=== PATIENT | female | born 1940 | race African-American/Black ===

== ENCOUNTER → 2017-02-12 | Outpatient (CLI) | payer MEDICARE, MEDICAID ==
[~2017-02-12] MED LIST: AMOX125S8 PO; ATEN50TA PO; CHOL50006 PO; CYAN50003 PO; DOCU250C75 PO; GABA300S PO; LEVO250T2 PO; OXYC-102 PO
== END | disposition home or self-care (01) ==
LOC: MRI 09:42
PROVIDERS: ATTEND Neurological Surgery
DX: M51.26 Other intervertebral disc displacement, lumbar region (principal); M47.816 Spondylosis without myelopathy or radiculopathy, lumbar region; M48.06 Spinal stenosis, lumbar region; M48.02 Spinal stenosis, cervical region; G95.89 Other specified diseases of spinal cord; Z98.1 Arthrodesis status
CPT/HCPCS: 72141; 72148

== ENCOUNTER 2017-06-06 10:21 | Emergency (ER) | payer MEDICARE, MEDICAID ==
[~2017-06-06] VITALS: Ht 157.5 cm; Wt 76.0 kg
[~2017-06-06 10:21] MED LIST changes: +DOCU250C14 PO; -DOCU250C75 PO
[2017-06-06] MEDS ORDERED: HYDR12.529 PO (10:38)
[2017-06-06] MEDS ORDERED: SIMV40TA5 PO (10:38)
[2017-06-06] MEDS ORDERED: LOSA100T14 PO (10:38)
[2017-06-06] MEDS ORDERED: CHOL400T15 MT (10:38)
[2017-06-06] MEDS ORDERED: ONDANSETRON 4MG ODT PO ONE (11:15)
[2017-06-06] MEDS ORDERED: HYDROCODONE/ACETAMINOPHEN 5/325MG TABLET PO ONE (11:15)
[2017-06-06 11:49] VITALS: BP 141/92
== END 2017-06-06 13:46 | disposition home or self-care (01) ==
LOC: ER 12:23
DX: M25.561 Pain in right knee (principal); I10 Essential (primary) hypertension; M54.40 Lumbago with sciatica, unspecified side; E78.00 Pure hypercholesterolemia, unspecified; Z90.710 Acquired absence of both cervix and uterus; V43.52XA Car driver injured in collision with other type car in traffic accident, initial encounter; Y93.89 Activity, other specified; Y99.8 Other external cause status; Y92.89 Other specified places as the place of occurrence of the external cause; Z88.8 Allergy status to other drugs, medicaments and biological substances; Z88.6 Allergy status to analgesic agent
CPT/HCPCS: 73562; 99284; Q0162

== ENCOUNTER → 2017-11-13 | Outpatient (CLI) | payer MEDICARE, MEDICAID ==
[~2017-11-13] MED LIST changes: +CHOL400T15 MT; +HYDR12.529 PO; +LOSA100T14 PO; +SIMV40TA5 PO
== END | disposition home or self-care (01) ==
LOC: RAD 10:52
PROVIDERS: ATTEND Neurological Surgery
DX: M43.16 Spondylolisthesis, lumbar region (principal); M48.061 Spinal stenosis, lumbar region without neurogenic claudication; M47.896 Other spondylosis, lumbar region
CPT/HCPCS: 72114; 72148

== ENCOUNTER → 2018-04-30 | Outpatient (CLI) | payer MEDICARE, MEDICAID ==
[~2018-04-30] MED LIST changes: +AMLO5TAB88 MT; -ATEN50TA PO; -CHOL400T15 MT; -CHOL50006 PO; -CYAN50003 PO; -DOCU250C14 PO; -GABA300S PO; -HYDR12.529 PO; -LEVO250T2 PO; -OXYC-102 PO
== END | disposition home or self-care (01) ==
LOC: RAD 11:00
PROVIDERS: ATTEND Specialist
DX: M79.89 Other specified soft tissue disorders (principal); I10 Essential (primary) hypertension; E11.9 Type 2 diabetes mellitus without complications; J45.909 Unspecified asthma, uncomplicated
CPT/HCPCS: 73610; 73630

== ENCOUNTER → 2018-07-09 | Outpatient (CLI) | payer MEDICARE, MEDICAID | END | disposition home or self-care (01) | LOC: MRI 09:36 | PROVIDERS: ATTEND Neurological Surgery | DX: M48.02 Spinal stenosis, cervical region (principal); M47.896 Other spondylosis, lumbar region; M48.061 Spinal stenosis, lumbar region without neurogenic claudication | CPT/HCPCS: 72141; 72148 ==

== ENCOUNTER 2019-04-30 16:31 | Emergency (ER) | payer MEDICARE, MEDICAID ==
[~2019-04-30] VITALS: Ht 157.5 cm; Wt 70.0 kg
[~2019-04-30 16:31] MED LIST changes: +AMOX125S12 PO; -AMOX125S8 PO; -LOSA100T14 PO; +LOSA100T32 PO
[2019-04-30] MEDS ORDERED: METRONIDAZOLE 500MG TABLET PO ONE (23:00)
[2019-04-30] MEDS ORDERED: LEVOFLOXACIN 750MG PREMIX 150 ML IV ONE (23:00)
[2019-04-30] MEDS ORDERED: MORPHINE SULFATE 4 MG/ML CPJ (NOT FOR IM USE) IV ONE (23:00)
[2019-04-30 23:18] VITALS: BP 143/77
== END 2019-05-01 00:39 | disposition home or self-care (01) ==
LOC: ER 16:31
DX: K57.92 Diverticulitis of intestine, part unspecified, without perforation or abscess without bleeding (principal); I10 Essential (primary) hypertension; J45.909 Unspecified asthma, uncomplicated; Z90.710 Acquired absence of both cervix and uterus; Z88.6 Allergy status to analgesic agent; Z98.890 Other specified postprocedural states
CPT/HCPCS: 96374; 99283; J1956; J2270

== ENCOUNTER → 2022-04-01 | Outpatient (CLI) | payer MEDICARE, MEDICAID ==
[~2022-04-01] MED LIST changes: +OXYC-104 MT; +SIMV-46 PO; -SIMV40TA5 PO; +VITA250012 PO
== END | disposition home or self-care (01) ==
LOC: LAB 09:31
PROVIDERS: ATTEND Specialist
DX: R06.02 Shortness of breath (principal); Z20.822 Contact with and (suspected) exposure to COVID-19
CPT/HCPCS: 87426; C9803

== ENCOUNTER → 2022-04-02 | Day surgery (SDC) | payer MEDICARE, MEDICAID ==
[~2022-04-02] VITALS: Ht 157.5 cm; Wt 71.7 kg
[~2022-04-02] MED LIST changes: +ACETAMINOPHEN 325MG TABLET PO PRN; +ASPIRIN/SOD BICARB/CITRIC ACID 324MG TAB EFF ONE; +FENTANYL CITRATE/PF 50MCG/ML 2ML VIAL ONE; +HEPARIN 1000 UNITS/ML 10ML ONE; +IODIXANOL 320MG/ML 100 ML BOTTLE IV ONE; +LIDOCAINE HCL 1% 10 MG/ML 10ML VIAL ONE; +MIDAZOLAM HCL 2 MG/2 ML VIAL ONE; +MORPHINE SULFATE 2 MG/ML CPJ (NOT FOR IM USE) IV PRN; +NICARDIPINE 100MCG/ML 10ML VIAL (CATH LAB) IV ONE; +NITROGLYCERIN 50MCG/ML 10ML VIAL (CATH LAB) IV ONE; +ONDANSETRON HCL 4MG/2ML INJ IV PRN
== END | disposition home or self-care (01) ==
LOC: CCL 08:44
PROVIDERS: ATTEND Specialist
DX: I25.10 Atherosclerotic heart disease of native coronary artery without angina pectoris (principal); Z79.899 Other long term (current) drug therapy; Z98.890 Other specified postprocedural states; Z82.49 Family history of ischemic heart disease and other diseases of the circulatory system; Z88.8 Allergy status to other drugs, medicaments and biological substances
CPT/HCPCS: 93458; C1769; C1893; J1644; J2250; J3010; J3490; Q9967

== ENCOUNTER 2022-04-23 08:55 | Inpatient (IN) | payer MEDICARE, MEDICAID ==
[~2022-04-23] VITALS: Ht 165.1 cm; Wt 71.7 kg
[~2022-04-23 08:55] MED LIST changes: -ACETAMINOPHEN 325MG TABLET PO PRN; -ASPIRIN/SOD BICARB/CITRIC ACID 324MG TAB EFF ONE; -FENTANYL CITRATE/PF 50MCG/ML 2ML VIAL ONE; -HEPARIN 1000 UNITS/ML 10ML ONE; -IODIXANOL 320MG/ML 100 ML BOTTLE IV ONE; -LIDOCAINE HCL 1% 10 MG/ML 10ML VIAL ONE; -MIDAZOLAM HCL 2 MG/2 ML VIAL ONE; -MORPHINE SULFATE 2 MG/ML CPJ (NOT FOR IM USE) IV PRN; -NICARDIPINE 100MCG/ML 10ML VIAL (CATH LAB) IV ONE; -NITROGLYCERIN 50MCG/ML 10ML VIAL (CATH LAB) IV ONE; -ONDANSETRON HCL 4MG/2ML INJ IV PRN
[2022-04-23] MEDS ORDERED: SODIUM CHLORIDE 0.9% 1,000 ML IV ONE (11:00)
[2022-04-23 11:23] LABS: BASOPHILS % 0.5 % (0.0-2.0); EOSINOPHILS % 0.2 % (0.0-5.0); HEMATOCRIT. 44.9 % (36.0-48.0); LYMPHOCYTES % 11.2 % (20.0-50.0); MEAN CORPUSCULAR HEMOGLOBIN 31.7 pg (28.0-32.0); MEAN CORPUSCULAR VOLUME 95.1 fL (81.0-99.0); MEAN PLATELET VOLUME 9.4 fl (7.4-10.4); MONOCYTES % 12.9 % (2.0-8.0); NEUTROPHILS % 75.2 % (40.0-76.0); PLATELET 168 x1000/uL (130-400); RED BLOOD CELL COUNT 4.73 mill/uL (4.2-5.4); RED CELL DISTRIBUTION WIDTH 13.9 % (11.6-14.6)
[2022-04-23 11:35] LABS: CHLORIDE 102 mEq/L (98-107)
[2022-04-23] MEDS ORDERED: SODIUM CHLORIDE 0.9% 1000ML BAG (SEPSIS BOLUS) IV NR (12:00)
[2022-04-23] MEDS ORDERED: PIPERACILLIN/TAZ 3.375G PREMIX 50 ML IV NR (12:00)
[2022-04-23] MEDS ORDERED: HYDROCODONE/ACETAMINOPHEN 5/325MG TABLET PO ONE (12:30)
[2022-04-23] MEDS: POTASSIUM CHLORIDE 20MEQ TABLET SR PO NR ×2 (12:46→13:54)
[2022-04-23] MEDS ORDERED: KCL 10MEQ/50ML PREMIX 50 ML IV ONE (13:45)
[2022-04-23] MEDS: AMLODIPINE 5MG TABLET PO SCH (19:15)
[2022-04-23] MEDS: OXYCODONE HCL/ACETAMINOPHEN 5/325MG TABLET PO PRN (19:25)
[2022-04-23 19:33] LABS: CLARITY URINE CLEAR (CLEAR); COLOR URINE YELLOW (YELLOW); KETONES URINE TRACE (NEGATIVE); LEUKOCYTE ESTERASE URINE NEGATIVE (NEGATIVE); NITRITE URINE NEGATIVE (NEGATIVE); OCCULT BLOOD URINE NEGATIVE (NEGATIVE); PH URINE 5.5 (4.5-8.0); PROTEIN URINE NEGATIVE (NEGATIVE); SPECIFIC GRAVITY URINE 1.015 (1.005-1.030)
[2022-04-23 22:10] VITALS: BP 117/54
[2022-04-23 23:00] VITALS: BP 117/54
[2022-04-23] MEDS: ATORVASTATIN CALCIUM 40MG TABLET PO SCH (23:37)
[2022-04-24] VITALS: BP 123/61
[2022-04-24 04:00] VITALS: BP 106/51
[2022-04-24 06:42] LABS: BASOPHILS % 0.1 % (0.0-2.0); EOSINOPHILS % 0.4 % (0.0-5.0); HEMATOCRIT. 38.7 % (36.0-48.0); HEMOGLOBIN. 13.2 g/dL (12.0-16.0); LYMPHOCYTES % 10.3 % (20.0-50.0); MEAN CORPUSCULAR HEMOGLOBIN 32.2 pg (28.0-32.0); MEAN CORPUSCULAR VOLUME 94.4 fL (81.0-99.0); MEAN PLATELET VOLUME 10.1 fl (7.4-10.4); MONOCYTES % 11.2 % (2.0-8.0); PLATELET 141 x1000/uL (130-400); RED CELL DISTRIBUTION WIDTH 14.7 % (11.6-14.6)
[2022-04-24 06:43] LABS: CHLORIDE 108 mEq/L (98-107)
[2022-04-24 08:21] VITALS: BP 98/44
[2022-04-24] MEDS ORDERED: POTASSIUM CHLORIDE 20MEQ/PACKET PO SCH (08:45)
[2022-04-24 09:46] LABS: CREATINE KINASE 750 IU/L (26-192)
[2022-04-24] MEDS: AMLODIPINE 5MG TABLET PO SCH (10:26)
[2022-04-24] MEDS: DEXT 5%/0.45% NACL 1000ML 1,000 ML IV SCH ×2 (10:30→21:26)
[2022-04-24 11:53] VITALS: BP 110/40
[2022-04-24] MEDS: OXYCODONE HCL/ACETAMINOPHEN 5/325MG TABLET PO PRN ×3 (12:48→14:41)
[2022-04-24 16:00] VITALS: BP 112/60
[2022-04-24 20:00] VITALS: BP 97/50
[2022-04-24] MEDS: ATORVASTATIN CALCIUM 40MG TABLET PO SCH (21:26)
[2022-04-25] VITALS: BP 113/49
[2022-04-25 04:00] VITALS: BP 112/53
[2022-04-25] MEDS: OXYCODONE HCL/ACETAMINOPHEN 5/325MG TABLET PO PRN (05:28)
[2022-04-25 06:52] LABS: CHLORIDE 110 mEq/L (98-107)
[2022-04-25 08:00] VITALS: BP 109/53
[2022-04-25] MEDS: AMLODIPINE 5MG TABLET PO SCH (09:00)
[2022-04-25] MEDS ORDERED: POTASSIUM CHLORIDE 20MEQ TABLET SR PO NR (09:45)
[2022-04-25 12:00] VITALS: BP 109/53
[2022-04-25 16:00] VITALS: BP 104/62
[2022-04-25 16:05] VITALS: BP 104/62
== END 2022-04-25 16:33 | disposition home or self-care (01) | DRG 641 ==
LOC: ER 08:55 → 6WST 13:39 → EDBEDREQTM 13:55 → EDBEDREQ 13:55 → ENRESERV 15:10
PROVIDERS: ADMIT Internal Medicine; ATTEND Internal Medicine
DX: E86.0 Dehydration (principal); N17.9 Acute kidney failure, unspecified; R63.4 Abnormal weight loss; E80.6 Other disorders of bilirubin metabolism; E87.6 Hypokalemia; F32.A Depression, unspecified; I10 Essential (primary) hypertension; E78.5 Hyperlipidemia, unspecified; J45.909 Unspecified asthma, uncomplicated; F41.9 Anxiety disorder, unspecified; M19.90 Unspecified osteoarthritis, unspecified site; G89.4 Chronic pain syndrome; Z20.822 Contact with and (suspected) exposure to COVID-19; Z79.899 Other long term (current) drug therapy; Z88.8 Allergy status to other drugs, medicaments and biological substances; Z90.710 Acquired absence of both cervix and uterus; Z82.49 Family history of ischemic heart disease and other diseases of the circulatory system
CPT/HCPCS: 36415; 71045; 76770; 80048; 80053; 81003; 82550; 83605; 84145; 84484; 85025; 87426; 93005; 99291; J2543; J3480; J7030

== ENCOUNTER 2022-12-23 00:45 | Inpatient (IN) | payer MEDICARE, MEDICAID ==
[~2022-12-23] VITALS: Ht 160 cm; Wt 64.0 kg
[~2022-12-23 00:45] MED LIST changes: -AMOX125S12 PO
[2022-12-23] MEDS ORDERED: MORPHINE SULFATE 4 MG/ML CPJ (NOT FOR IM USE) IV STA (03:05)
[2022-12-23] MEDS ORDERED: ONDANSETRON HCL 4MG/2ML INJ IV STA (03:05)
[2022-12-23] MEDS ORDERED: SODIUM CHLORIDE 0.9% 1,000 ML IV ONE ×2 (03:15→06:30)
[2022-12-23 03:32] LABS: BASOPHILS % 0.2 % (0.0-2.0); EOSINOPHILS % 0.1 % (0.0-5.0); HEMATOCRIT. 42.4 % (36.0-48.0); HEMOGLOBIN. 14.5 g/dL (12.0-16.0); LYMPHOCYTES % 9.4 % (20.0-50.0); MEAN CORPUSCULAR HEMOGLOBIN 33.3 pg (28.0-32.0); MEAN CORPUSCULAR VOLUME 97.8 fL (81.0-99.0); MEAN PLATELET VOLUME 9.7 fl (7.4-10.4); MONOCYTES % 8.9 % (2.0-8.0); NEUTROPHILS % 81.4 % (40.0-76.0); PLATELET 159 x1000/uL (130-400); RED BLOOD CELL COUNT 4.34 mill/uL (4.2-5.4)
[2022-12-23 03:41] LABS: CHLORIDE 105 mEq/L (98-107)
[2022-12-23 03:42] LABS: CLARITY URINE CLEAR (CLEAR); COLOR URINE DARK YELLOW (YELLOW); KETONES URINE TRACE (NEGATIVE); LEUKOCYTE ESTERASE URINE TRACE (NEGATIVE); NITRITE URINE NEGATIVE (NEGATIVE); OCCULT BLOOD URINE TRACE (NEGATIVE); PH URINE 5.5 (4.5-8.0); PROTEIN URINE NEGATIVE (NEGATIVE); SPECIFIC GRAVITY URINE 1.015 (1.005-1.030)
[2022-12-23] MEDS ORDERED: CEFTRIAXONE 1GM PREMIX 50 ML IV ONE (06:30)
[2022-12-23] MEDS ORDERED: METRONIDAZOLE 500 MG PREMIX 100 ML IV ONE (06:30)
[2022-12-23] MEDS: DEXT 5%/0.45% NACL 1000ML 1,000 ML IV SCH ×2 (13:15→23:32)
[2022-12-23] MEDS: MORPHINE SULFATE 2 MG/ML CPJ (NOT FOR IM USE) IV PRN ×2 (14:39→23:33)
[2022-12-23] MEDS: METRONIDAZOLE 500 MG PREMIX 100 ML IV SCH ×2 (14:40→21:04)
[2022-12-23 17:40] VITALS: BP 150/70
[2022-12-23 20:00] VITALS: BP 119/65
[2022-12-23] MEDS ORDERED: NALOXONE HCL 0.4MG/ML VIAL IV PRN (20:15)
[2022-12-23] MEDS: ATORVASTATIN CALCIUM 40MG TABLET PO SCH (21:04)
[2022-12-24] VITALS: BP 108/55
[2022-12-24 04:00] VITALS: BP 151/70
[2022-12-24] MEDS: MORPHINE SULFATE 2 MG/ML CPJ (NOT FOR IM USE) IV PRN ×3 (05:06→20:58)
[2022-12-24] MEDS: METRONIDAZOLE 500 MG PREMIX 100 ML IV SCH ×3 (06:26→22:22)
[2022-12-24 08:00] VITALS: BP 128/73
[2022-12-24] MEDS: AMLODIPINE 5MG TABLET PO SCH (09:26)
[2022-12-24] MEDS: LOSARTAN POTASSIUM 100 MG TABLET PO SCH (09:26)
[2022-12-24] MEDS: DEXT 5%/0.45% NACL 1000ML 1,000 ML IV SCH ×2 (10:13→19:15)
[2022-12-24 11:43] VITALS: BP 150/67
[2022-12-24 12:53] LABS: BASOPHILS % 0.8 % (0.0-2.0); EOSINOPHILS % 1.2 % (0.0-5.0); HEMATOCRIT. 41.6 % (36.0-48.0); HEMOGLOBIN. 13.8 g/dL (12.0-16.0); LYMPHOCYTES % 26.7 % (20.0-50.0); MEAN CORPUSCULAR HEMOGLOBIN 32.7 pg (28.0-32.0); MEAN CORPUSCULAR VOLUME 98.1 fL (81.0-99.0); MEAN PLATELET VOLUME 9.6 fl (7.4-10.4); NEUTROPHILS % 57.3 % (40.0-76.0); PLATELET 148 x1000/uL (130-400); RED BLOOD CELL COUNT 4.24 mill/uL (4.2-5.4); RED CELL DISTRIBUTION WIDTH 15.1 % (11.6-14.6)
[2022-12-24 13:09] LABS: CHLORIDE 107 mEq/L (98-107)
[2022-12-24 14:09] LABS: HEPATITIS B SURFACE ANTIGEN NEGATIVE
[2022-12-24 16:00] VITALS: BP 149/69
[2022-12-24 20:00] VITALS: BP 140/74
[2022-12-24] MEDS: ATORVASTATIN CALCIUM 40MG TABLET PO SCH (20:57)
[2022-12-25] VITALS: BP 137/76
[2022-12-25] MEDS: MORPHINE SULFATE 2 MG/ML CPJ (NOT FOR IM USE) IV PRN ×2 (02:59→11:36)
[2022-12-25 04:00] VITALS: BP 130/58
[2022-12-25] MEDS ORDERED: POTASSIUM CHLORIDE 10MEQ TABLET SR PO NR (06:00)
[2022-12-25] MEDS: METRONIDAZOLE 500 MG PREMIX 100 ML IV SCH (06:10)
[2022-12-25] MEDS: DEXT 5%/0.45% NACL 1000ML 1,000 ML IV SCH (06:10)
[2022-12-25 07:29] LABS: HEMATOCRIT. 38.7 % (36.0-48.0); MEAN CORPUSCULAR HEMOGLOBIN 32.6 pg (28.0-32.0); MEAN CORPUSCULAR VOLUME 97.3 fL (81.0-99.0); MEAN PLATELET VOLUME 9.2 fl (7.4-10.4); PLATELET 156 x1000/uL (130-400); RED BLOOD CELL COUNT 3.97 mill/uL (4.2-5.4); RED CELL DISTRIBUTION WIDTH 15.1 % (11.6-14.6)
[2022-12-25 08:00] VITALS: BP 147/73
[2022-12-25 08:15] LABS: CHLORIDE 106 mEq/L (98-107)
[2022-12-25 09:41] LABS: PLATELET ESTIMATE NORMAL
[2022-12-25] MEDS: LOSARTAN POTASSIUM 100 MG TABLET PO SCH (10:05)
[2022-12-25] MEDS: AMLODIPINE 5MG TABLET PO SCH (10:05)
[2022-12-25 12:00] VITALS: BP 153/63
[2022-12-25 16:00] VITALS: BP 132/52
[2022-12-25 16:10] VITALS: BP 132/52
== END 2022-12-25 16:35 | disposition home or self-care (01) | DRG 392 ==
LOC: ER 00:45 → 6EST 06:35 → EDBEDREQTM 06:40 → EDBEDREQ 06:40 → ENRESERV 10:49
PROVIDERS: ADMIT Internal Medicine; ATTEND Internal Medicine
DX: K57.92 Diverticulitis of intestine, part unspecified, without perforation or abscess without bleeding (principal); I10 Essential (primary) hypertension; G89.4 Chronic pain syndrome; F32.A Depression, unspecified; F41.9 Anxiety disorder, unspecified; E78.00 Pure hypercholesterolemia, unspecified; E87.6 Hypokalemia; E78.5 Hyperlipidemia, unspecified; Z87.891 Personal history of nicotine dependence; Z90.710 Acquired absence of both cervix and uterus; Z79.899 Other long term (current) drug therapy; Z82.49 Family history of ischemic heart disease and other diseases of the circulatory system
CPT/HCPCS: 36415; 71045; 74176; 76700; 80048; 80053; 80076; 81003; 83605; 85025; 86705; 86709; 86803; 87340; 99285; C1893; J0696; J2270; J2405; J3490; J7030

== ENCOUNTER 2024-04-11 20:28 | Emergency (ER) | payer MEDICARE, MEDICAID ==
[~2024-04-11] VITALS: Ht 162.6 cm; Wt 78.0 kg
[~2024-04-11 20:28] MED LIST changes: -LOSA100T32 PO; +LOSA100T33 PO
[2024-04-11 20:36] VITALS: O2SAT 99
[2024-04-11 21:17] LABS: HEMATOCRIT. 41.1 % (36.0-48.0); HEMOGLOBIN. 13.8 g/dL (12.0-16.0); MEAN CORPUSCULAR HEMOGLOBIN 35.3 pg (28.0-32.0); MEAN CORPUSCULAR HGB CONC 33.7 g/dL (31.0-37.0); MEAN CORPUSCULAR VOLUME 104.8 fL (81.0-99.0); PLATELET 135 x1000/uL (130-400); RED BLOOD CELL COUNT 3.92 mill/uL (4.2-5.4); RED CELL DISTRIBUTION WIDTH 16.5 % (11.6-14.6); WHITE BLOOD COUNT 4.3 x1000/uL (4.5-11.0)
[2024-04-11 21:18] LABS: DIFFERENTIAL COMMENT 1
[2024-04-11 21:23] LABS: CHLORIDE 113 mEq/L (98-107); POTASSIUM 3.7 mEq/L (3.5-5.1); SODIUM 146 mEq/L (136-145)
[2024-04-11 21:24] LABS: CALCIUM 8.9 mg/dL (8.7-10.4); CARBON DIOXIDE 27 mEq/L (21-32)
[2024-04-11 21:29] LABS: CREATININE 0.8 mg/dL (0.6-1.0); GLUCOSE 89 mg/dL (70-105); UREA NITROGEN BLOOD 13 mg/dL (9-23)
[2024-04-11 21:31] LABS: ALANINE AMINOTRANSFERASE 64 IU/L (10-49); ALBUMIN 3.6 g/dL (3.2-4.8); ASPARTATE AMINOTRANSFERASE 81 IU/L (<34); BILIRUBIN DIRECT 0.7 mg/dL (<=3.0); BILIRUBIN TOTAL 1.2 mg/dL (0.1-1.0); PROTEIN TOTAL 7.2 g/dL (6.0-8.3)
[2024-04-11 21:51] LABS: ANISOCYTOSIS 1+; PLATELET ESTIMATE NORMAL
[2024-04-12] MEDS ORDERED: TRAMADOL 50MG TABLET PO ONE (08:00)
[2024-04-12 08:14] LABS: CLARITY URINE CLEAR (CLEAR); COLOR URINE YELLOW (YELLOW); GLUCOSE URINE NEGATIVE (NEGATIVE); KETONES URINE NEGATIVE (NEGATIVE); LEUKOCYTE ESTERASE URINE TRACE (NEGATIVE); NITRITE URINE NEGATIVE (NEGATIVE); OCCULT BLOOD URINE NEGATIVE (NEGATIVE); PROTEIN URINE NEGATIVE (NEGATIVE); SPECIFIC GRAVITY URINE 1.015 (1.005-1.030)
[2024-04-12 08:40] LABS: BACTERIA URINE 1+; RBC URINE 0-2 /hpf (0-2); SQUAMOUS EPITHELIAL CELL URINE 2+ /lpf (RARE/1+); YEAST URINE NONE SEEN
[2024-04-12 10:28] LABS: BASOPHILS % 1.1 % (0.0-2.0); DIFFERENTIAL COMMENT 0; EOSINOPHILS % 2.3 % (0.0-5.0); HEMATOCRIT. 45.9 % (36.0-48.0); HEMOGLOBIN. 15.3 g/dL (12.0-16.0); LYMPHOCYTES % 42.9 % (20.0-50.0); MEAN CORPUSCULAR HGB CONC 33.3 g/dL (31.0-37.0); MEAN CORPUSCULAR VOLUME 105.2 fL (81.0-99.0); MEAN PLATELET VOLUME 9.2 fl (7.4-10.4); MONOCYTES % 11.5 % (2.0-8.0); NEUTROPHILS % 42.2 % (40.0-76.0); PLATELET 142 x1000/uL (130-400); RED BLOOD CELL COUNT 4.36 mill/uL (4.2-5.4); RED CELL DISTRIBUTION WIDTH 16.5 % (11.6-14.6); WHITE BLOOD COUNT 4.2 x1000/uL (4.5-11.0)
[2024-04-12 10:33] LABS: INR 1.2; PROTHROMBIN TIME 13.2 sec (9.6-11.0)
[2024-04-12 10:37] LABS: CHLORIDE 111 mEq/L (98-107); POTASSIUM 3.8 mEq/L (3.5-5.1); SODIUM 143 mEq/L (136-145)
[2024-04-12 10:38] LABS: CALCIUM 9.3 mg/dL (8.7-10.4); CARBON DIOXIDE 27 mEq/L (21-32)
[2024-04-12 10:43] LABS: CREATININE 0.7 mg/dL (0.6-1.0); GLUCOSE 98 mg/dL (70-105); UREA NITROGEN BLOOD 10 mg/dL (9-23)
[2024-04-12] MEDS: TRAMADOL 50MG TABLET PO NR (11:30)
[2024-04-12] MEDS ORDERED: AMOX1TAB16 MT (15:10)
[2024-04-12] MEDS ORDERED: IBUP-2028 MT (15:10)
[2024-04-12] MEDS ORDERED: AMOXICILLIN/POTASSIUM CLAVULANATE 875/125MG TAB PO NR (15:15)
[2024-04-12] MEDS ORDERED: AMOX200S10 MT (16:16)
[2024-04-12 16:52] VITALS: BP 124/77; PULSE 88; RESP 16; TEMP 98.7
== END 2024-04-12 16:53 | disposition home or self-care (01) ==
LOC: ER 20:42
DX: K57.92 Diverticulitis of intestine, part unspecified, without perforation or abscess without bleeding (principal); N39.0 Urinary tract infection, site not specified; E78.00 Pure hypercholesterolemia, unspecified; I10 Essential (primary) hypertension; Z90.710 Acquired absence of both cervix and uterus; Z88.6 Allergy status to analgesic agent; Z88.8 Allergy status to other drugs, medicaments and biological substances
CPT/HCPCS: 36415; 74176; 80048; 80076; 81003; 85025; 99284